=== PATIENT | female | born 1990 | race African-American/Black ===

== ENCOUNTER 2021-11-16 23:29 | Day surgery (SDC) | payer OTHER ==
[2021-11-16] MEDS ORDERED: hydrALAZINE 20 MG/ML VIAL SLOW IVP PRN (23:34)
[2021-11-16] MEDS ORDERED: Acetaminophen 325 MG TAB PO SCH (23:59)
[2021-11-17] MEDS ORDERED: Calcium Carbonate 500 MG ChewTAB PO SCH (00:15)
[2021-11-17 00:30] LABS: Hemoglobin 8.1 g/dL (12.0-15.5); Mean Corpuscular HGB CONC 34.2 g/dL (32.0-36.0); Mean Corpuscular Hemoglobin 31.8 pg (27.0-33.0); Mean Corpuscular Volume 92.9 fl (81.6-98.3); Mean Platelet Volume 10.5 fl (7.4-10.4); Platelet Count 301 10x3/uL (150-450); RBC Distribution Width 12.4 % (11.5-14.5); Red Blood Cell (RBC) Count 2.55 10x6/uL (3.90-5.03); White Blood Cell (WBC) Count 7.7 10x3/uL (3.5-10.5)
[2021-11-17] MEDS ORDERED: Ondansetron PF 4 MG/2 ML Vial IVP SCH (00:45)
[2021-11-17] MEDS ORDERED: Lactated Ringer's 1,000 ML IV SCH (00:45)
[2021-11-17 01:00] LABS: Syphilis Antibody Nonreactive (Nonreactive); Syphilis Antibody Index 0.06 S/CO (<1.00 Non-Reactive)
[2021-11-17] MEDS ORDERED: Famotidine/PF 20 mg/2ml Vial SLOW IVP SCH ×2 (01:00→09:00)
[2021-11-17 02:12] LABS: Bilirubin Neg (Negative); Blood, Urine Negative (Negative); Clarity Clear (Clear); Glucose, Urine (Dipstick) Normal (Negative); Ketone, Urine Negative (Negative); Leukocyte 100 (Negative); Nitrite Negative (Negative); Protein, Urine (Dipstick) 15 mg/dl (Neg-Trace); Urobilinogen Normal mg/dL (Less than 2)
[2021-11-17 02:18] LABS: Bacteria/HPF Rare-Few HPF (None Seen); RBC/HPF None Seen HPF (0-3); Squamous Epithelial 0-3 HPF (0-3); WBC/HPF 0-3 HPF (0-3)
[2021-11-17 12:26] LABS: HBSAB Concentration Less than 8.00 mIU/mL; Hep B Surf AB Non-Reactive (NonReactive)
[2021-11-17 15:37] LABS: Chlamydia by PCR Not Detected (NotDetected); GC by PCR DETECTED (NotDetected)
== END 2021-11-17 04:00 | disposition home or self-care (01) ==
LOC: CSHLD/OP 23:29
PROVIDERS: ATTEND Obstetrics & Gynecology
DX: O99.891 Other specified diseases and conditions complicating pregnancy (principal); R10.13 Epigastric pain; O99.013 Anemia complicating pregnancy, third trimester; O10.913 Unspecified pre-existing hypertension complicating pregnancy, third trimester; O09.33 Supervision of pregnancy with insufficient antenatal care, third trimester; O32.2XX0 Maternal care for transverse and oblique lie, not applicable or unspecified; Z3A.28 28 weeks gestation of pregnancy
CPT/HCPCS: 36415; 76816; 81001; 85027; 86706; 86762; 86780; 86850; 86900; 86901; 87491; 87591; 96360; 96361; 96375; 99284; J2405; S0028

== ENCOUNTER 2022-01-15 11:25 | Day surgery (SDC) | payer OTHER, SELFPAY ==
[2022-01-15 12:22] LABS: Bilirubin Neg (Negative); Blood, Urine Negative (Negative); Clarity Slightly Cloudy (Clear); Glucose, Urine (Dipstick) Normal (Negative); Ketone, Urine Negative (Negative); Leukocyte 100 (Negative); Nitrite Negative (Negative); Protein, Urine (Dipstick) 100 mg/dl (Neg-Trace); Specific Gravity, Urine 1.015 (1.002-1.036)
[2022-01-15 12:24] LABS: Urine Culture Reflex No No
[2022-01-15 12:33] LABS: Amphetamine Not Detected (NotDetected); Barbiturates Screen Not Detected (NotDetected); Benzodiazepine Screen Not Detected (NotDetected); Cocaine Metabolite Screen Detected (NotDetected); Methadone Not Detected (NotDetected); Methamphetamine Not Detected (NotDetected); Opiate Screen Not Detected (NotDetected); Oxycodone Screen Not Detected (NotDetected); Phencyclidine (PCP) Not Detected (NotDetected); THC/Cannabinoid Screen Detected (NotDetected); Tricyclic Screen Not Detected (NotDetected)
[2022-01-15 12:36] LABS: RBC/HPF 0-3 HPF (0-3)
[2022-01-15 12:38] LABS: Bacteria/HPF 1+ HPF (None Seen)
[2022-01-15] MEDS ORDERED: hydrALAZINE 20 MG/ML VIAL SLOW IVP PRN (12:51)
[2022-01-15 13:50] LABS: Hemoglobin 8.5 g/dL (12.0-15.5); Mean Corpuscular HGB CONC 32.7 g/dL (32.0-36.0); Mean Corpuscular Hemoglobin 30.6 pg (27.0-33.0); Mean Corpuscular Volume 93.5 fl (81.6-98.3); Mean Platelet Volume 10.7 fl (7.4-10.4); Platelet Count 295 10x3/uL (150-450); RBC Distribution Width 13.6 % (11.5-14.5); Red Blood Cell (RBC) Count 2.78 10x6/uL (3.90-5.03); White Blood Cell (WBC) Count 7.3 10x3/uL (3.5-10.5)
[2022-01-15 14:48] LABS: Bilirubin Neg (Negative); Blood, Urine Negative (Negative); Clarity Slightly Cloudy (Clear); Glucose, Urine (Dipstick) Normal (Negative); Ketone, Urine Negative (Negative); Leukocyte Negative (Negative); Nitrite Negative (Negative); Protein, Urine (Dipstick) 30 mg/dl (Neg-Trace); Urobilinogen Normal mg/dL (Less than 2)
[2022-01-15 14:54] LABS: RBC/HPF 0-3 HPF (0-3)
[2022-01-15 14:55] LABS: Bacteria/HPF Rare-Few HPF (None Seen)
[2022-01-15] MEDS ORDERED: cefTRIAXone\\ROCEPHIN 500 MG VIAL IM SCH (15:45)
[2022-01-15] MEDS ORDERED: Ondansetron ODT 4 MG TAB PO SCH (16:00)
[2022-01-15] MEDS ORDERED: Azithromycin 250 MG TAB PO SCH (16:30)
== END 2022-01-15 16:30 | disposition home health service (06) ==
LOC: CSHLD/OP 11:25
PROVIDERS: ATTEND Obstetrics & Gynecology
DX: O26.893 Other specified pregnancy related conditions, third trimester (principal); M54.9 Dorsalgia, unspecified; R10.9 Unspecified abdominal pain; O09.33 Supervision of pregnancy with insufficient antenatal care, third trimester; Z3A.35 35 weeks gestation of pregnancy
CPT/HCPCS: 76815; 80306; 81001; 85027; 96372; 99284; J0696; Q0162

== ENCOUNTER 2022-01-25 00:13 | Day surgery (SDC) | payer OTHER ==
[2022-01-25] MEDS ORDERED: hydrALAZINE 20 MG/ML VIAL SLOW IVP PRN (00:50)
[2022-01-25] MEDS ORDERED: Acetaminophen 500 MG TAB PO SCH (01:15)
== END 2022-01-25 02:59 | disposition home or self-care (01) ==
LOC: CSHLD/OP 00:13
PROVIDERS: ATTEND Family Medicine
DX: O26.893 Other specified pregnancy related conditions, third trimester (principal); R10.30 Lower abdominal pain, unspecified; O10.913 Unspecified pre-existing hypertension complicating pregnancy, third trimester; Z3A.36 36 weeks gestation of pregnancy
CPT/HCPCS: 99283

== ENCOUNTER 2022-02-11 22:26 | Inpatient (IN) | payer OTHER, SELFPAY ==
[~2022-02-11 22:26] MED LIST: Bupivacaine 0.25% HCL 30 ML VIAL ONE
[2022-02-11 22:34] VITALS: BMI 23.7
[2022-02-11] MEDS ORDERED: hydrALAZINE 20 MG/ML VIAL SLOW IVP PRN (23:12)
[2022-02-11] MEDS ORDERED: Acetaminophen 500 MG TAB PO SCH (23:18)
[2022-02-11] MEDS ORDERED: Misoprostol 200 MCG TAB PR PRN (23:35)
[2022-02-11] MEDS ORDERED: Diphenoxylate HCl/Atropine Tablet PO PRN ×2 (23:35)
[2022-02-11] MEDS ORDERED: Lidocaine 1% (PF) 30 ML VIAL SC PRN (23:35)
[2022-02-11] MEDS ORDERED: Acetaminophen 500 MG TAB PO PRN (23:35)
[2022-02-11] MEDS ORDERED: Carboprost 250 MCG/ML AMP IM PRN (23:35)
[2022-02-11] MEDS ORDERED: Ibuprofen 800 MG TAB PO PRN (23:35)
[2022-02-11] MEDS ORDERED: HYDROcodone/Acetaminophen 5/325 mg Tablet PO PRN ×2 (23:35)
[2022-02-11] MEDS ORDERED: Promethazine HCl 25 MG/ML VIAL IM PRN (23:35)
[2022-02-11] MEDS ORDERED: Ondansetron PF 4 MG/2 ML Vial IVP PRN (23:35)
[2022-02-11] MEDS ORDERED: NS w/ Oxytocin 30 units 500 ML IV SCH ×2 (23:45)
[2022-02-11 23:46] LABS: Amphetamine Not Detected (NotDetected); Barbiturates Screen Not Detected (NotDetected); Benzodiazepine Screen Not Detected (NotDetected); Cocaine Metabolite Screen Detected (NotDetected); Methadone Not Detected (NotDetected); Methamphetamine Not Detected (NotDetected); Opiate Screen Not Detected (NotDetected); Oxycodone Screen Not Detected (NotDetected); Phencyclidine (PCP) Not Detected (NotDetected); THC/Cannabinoid Screen Detected (NotDetected); Tricyclic Screen Not Detected (NotDetected)
[2022-02-11 23:51] LABS: #Eosinphils 0.1 10x3/uL (0.0-0.5); #Monocytes 0.7 10x3/uL (0.0-1.1); #Neutrophils 5.4 10x3/uL (1.5-8.4); %Basophils 0.3 % (0.0-2.0); %Lymphocytes 21.1 % (18.0-47.0); %Monocytes 8.2 % (0.0-10.0); Hemoglobin 8.2 g/dL (12.0-15.5); Mean Corpuscular HGB CONC 33.2 g/dL (32.0-36.0); Mean Corpuscular Volume 87.3 fl (81.6-98.3); Mean Platelet Volume 11.7 fl (7.4-10.4); Platelet Count 307 10x3/uL (150-450); Red Blood Cell (RBC) Count 2.83 10x6/uL (3.90-5.03); White Blood Cell (WBC) Count 7.9 10x3/uL (3.5-10.5)
[2022-02-12 00:01] LABS: Creatinine, Urine 127.25 mg/dL (47-110)
[2022-02-12 00:32] LABS: ALT (SGPT) 12 U/L (8-55); AST (SGOT) 32 U/L (5-34); Albumin 3.3 g/dL (3.5-5.0); Alkaline Phosphatase 152 U/L (40-110); Anion Gap 13 mmol/L (10-20); BUN (Urea Nitrogen) 8 mg/dL (7.0-18.7); Bilirubin, Total 0.2 mg/dL (0.2-1.2); Calc. Creatinine Clearance 101 mL/min (70-130); Calcium 9.4 mg/dL (7.8-10.44); Carbon Dioxide 24 mmol/L (22-29); Chloride 105 mmol/L (98-107); Estimated GFR 104; Globulin 3.6 g/dL (2.4-3.5); Glucose 85 mg/dL (70-105); Potassium 3.6 mmol/L (3.5-5.1); Protein, Total 6.9 g/dL (6.0-8.3); Sodium 138 mmol/L (136-145)
[2022-02-12] MEDS ORDERED: Famotidine/PF 20 mg/2ml Vial ONE (00:39)
[2022-02-12] MEDS ORDERED: Famotidine/PF 20 mg/2ml Vial SLOW IVP SCH (00:45)
[2022-02-12 01:13] LABS: Syphilis Antibody Nonreactive (Nonreactive); Syphilis Antibody Index 0.08 S/CO (<1.00 Non-Reactive)
[2022-02-12 01:15] LABS: HBSAg Index 0.37 S/CO (0-0.99); HIV (1/2) Antibody/Antigen Non-Reactive (NonReactive); HIV 1/2 INDEX 0.18 S/CO (<1.00); Hep B Surf Ag Non-Reactive S/CO (NonReactive)
[2022-02-12 02:11] LABS: SARS-CoV-2 NAA Rapid Test Not Detected (NotDetected)
[2022-02-12] MEDS: hydrALAZINE 20 MG/ML VIAL SLOW IVP PRN ×2 (06:49→10:09)
[2022-02-12] MEDS ORDERED: Magnesium Sulfate 20 gm/500 ml 20 GM/500 ML BAG ONE ×2 (06:52→15:52)
[2022-02-12] MEDS ORDERED: Fentanyl 2 mcg/Bup 0.1% Cadd 100 ML ONE (09:06)
[2022-02-12] MEDS ORDERED: ePHEDrine Sulfate 50 MG/10 ML VIAL SLOW IVP PRN (09:46)
[2022-02-12] MEDS ORDERED: Lactated Ringer's 500 ML IV PRN (09:46)
[2022-02-12] MEDS ORDERED: diphenhydrAMINE 50 MG/ML VIAL IVP PRN (09:46)
[2022-02-12] MEDS ORDERED: Naloxone HCl 0.4 mg/ml Vial IVP PRN ×2 (09:46)
[2022-02-12] MEDS ORDERED: Acetaminophen 325 MG TAB PO PRN (09:46)
[2022-02-12] MEDS ORDERED: Ondansetron PF 4 MG/2 ML Vial IVP PRN (09:46)
[2022-02-12] MEDS ORDERED: Promethazine HCl 25 MG/ML VIAL IM PRN (09:46)
[2022-02-12] MEDS ORDERED: Moisturizing Cream (Eucerin) 113 GM JAR TOP PRN (09:46)
[2022-02-12] MEDS ORDERED: Fentanyl 2 mcg/Bupivacaine 0.1% Cassette 100 ML EPIDURAL SCH (10:00)
[2022-02-12] MEDS ORDERED: Communication Order-Pharmacy FS SCH (10:00)
[2022-02-12] MEDS ORDERED: Labetalol HCl 100 MG/20 ML VIAL SLOW IVP PRN (16:06)
[2022-02-12] MEDS ORDERED: Lorazepam 2 MG/ML VIAL SLOW IVP PRN (16:06)
[2022-02-12] MEDS ORDERED: hydrALAZINE 20 MG/ML VIAL SLOW IVP PRN ×3 (16:06→17:56)
[2022-02-12] MEDS ORDERED: Calcium Gluc 4.6 MEQ/10 ML (100 MG/ML) SLOW IVP PRN (16:06)
[2022-02-12] MEDS ORDERED: Misoprostol 200 MCG TAB ONE (16:56)
[2022-02-12] MEDS ORDERED: Tranexamic Acid 1,000 MG/10 ML VIAL ONE (16:56)
[2022-02-12] MEDS ORDERED: Lidocaine 1% (PF) 30 ML VIAL ONE (16:56)
[2022-02-12] MEDS ORDERED: Loperamide HCl 2 MG CAP PO PRN (17:52)
[2022-02-12] MEDS ORDERED: Boostrix 0.5 ML (Tdap) VIAL IM ONE (17:56)
[2022-02-12] MEDS ORDERED: Lanolin Ointment 7 GM TUBE TOP PRN (17:56)
[2022-02-12] MEDS ORDERED: Benzocaine-Menthol 82.5 ML CAN TOP PRN (17:56)
[2022-02-12] MEDS ORDERED: Bisacodyl 10 MG SUPP PR PRN (17:56)
[2022-02-12] MEDS ORDERED: Milk Of Magnesia 30 ML UDCUP PO PRN (17:56)
[2022-02-12 19:45] LABS: D-Dimer Test 3.8 mg/L FEU (0.19-0.50); INR-International Normal Ratio 0.9; PTT 24.3 sec (22.0-33.0); Prothrombin Time 9.6 sec (9.5-12.1)
[2022-02-12] MEDS ORDERED: HYDROcodone/Acetaminophen 5/325 mg Tablet PO PRN (21:13)
[2022-02-12] MEDS: HYDROcodone/Acetaminophen 5/325 mg Tablet PO PRN (21:42)
[2022-02-12 22:57] LABS: Hemoglobin 7.6 g/dL (12.0-15.5); Mean Corpuscular HGB CONC 33.8 g/dL (32.0-36.0); Mean Corpuscular Hemoglobin 29.2 pg (27.0-33.0); Mean Corpuscular Volume 86.5 fl (81.6-98.3); Mean Platelet Volume 11.2 fl (7.4-10.4); Platelet Count 285 10x3/uL (150-450); RBC Distribution Width 13.9 % (11.5-14.5); White Blood Cell (WBC) Count 15.9 10x3/uL (3.5-10.5)
[2022-02-13] MEDS: Ibuprofen 800 MG TAB PO SCH ×4 (01:44→21:30)
[2022-02-13] MEDS: Magnesium Sulfate 20 gm/500 ml 20 GM/500 ML BAG IVPB SCH ×2 (03:06→12:00)
[2022-02-13 05:50] LABS: Hemoglobin 6.8 g/dL (12.0-15.5); Mean Corpuscular HGB CONC 33.2 g/dL (32.0-36.0); Mean Corpuscular Hemoglobin 29.1 pg (27.0-33.0); Mean Corpuscular Volume 87.6 fl (81.6-98.3); Mean Platelet Volume 11.9 fl (7.4-10.4); Platelet Count 273 10x3/uL (150-450); RBC Distribution Width 14.1 % (11.5-14.5); Red Blood Cell (RBC) Count 2.34 10x6/uL (3.90-5.03); White Blood Cell (WBC) Count 13.9 10x3/uL (3.5-10.5)
[2022-02-13] MEDS ORDERED: Oxytocin 10 UNITS/ML VIAL ONE (08:42)
[2022-02-13] MEDS ORDERED: CEFAZOLIN 2 GM VIAL ONE (08:48)
[2022-02-13] MEDS: Ferrous Sulfate 325 MG TAB PO SCH ×2 (08:50→17:09)
[2022-02-13] MEDS: HYDROcodone/Acetaminophen 5/325 mg Tablet PO PRN ×2 (08:50→15:07)
[2022-02-13] MEDS: Docusate 100 MG CAP PO SCH ×3 (08:50→21:31)
[2022-02-13] MEDS: Prenatal Vitamin 1 TAB PO SCH (08:50)
[2022-02-13] MEDS: CEFAZOLIN 2 GM in Sodium Chloride 0.9% 100 ML IVPB SCH ×2 (13:40→21:32)
[2022-02-13] MEDS: Lactated Ringer's 1,000 ML IV SCH ×2 (15:22→17:07)
[2022-02-14] MEDS: Lactated Ringer's 1,000 ML IV SCH ×4 (02:46→08:07)
[2022-02-14] MEDS ORDERED: Sodium Chloride 0.9% 200 ML ONE (05:34)
[2022-02-14] MEDS: CEFAZOLIN 2 GM in Sodium Chloride 0.9% 100 ML IVPB SCH (05:47)
[2022-02-14] MEDS: Ibuprofen 800 MG TAB PO SCH ×2 (05:48→13:44)
[2022-02-14] MEDS: Prenatal Vitamin 1 TAB PO SCH (08:42)
[2022-02-14] MEDS: Ferrous Sulfate 325 MG TAB PO SCH ×3 (08:42→18:44)
[2022-02-14] MEDS: Docusate 100 MG CAP PO SCH (08:42)
[2022-02-14 23:00] VITALS: BP 146/81; TEMP 98.5
[2022-02-15] MEDS: Docusate 100 MG CAP PO SCH (02:42)
[2022-02-15] MEDS: Ibuprofen 800 MG TAB PO SCH (02:42)
== END 2022-02-14 23:20 | disposition home or self-care (01) | DRG 768 ==
LOC: CSHLD/OP 22:26 → CSHLD 23:48 → CSHPP 02-13 14:55
PROVIDERS: ADMIT Obstetrics & Gynecology; ATTEND Obstetrics & Gynecology
PROC: 10E0XZZ Delivery of Products of Conception, External Approach (ICD-10-PCS; principal; 2022-02-12)
PROC: 0W3R7ZZ Control Bleeding in Genitourinary Tract, Via Natural or Artificial Opening (ICD-10-PCS; 2022-02-12)
DX: O10.92 Unspecified pre-existing hypertension complicating childbirth (principal); Z37.0 Single live birth; O99.324 Drug use complicating childbirth; O72.1 Other immediate postpartum hemorrhage; D62 Acute posthemorrhagic anemia; Z3A.39 39 weeks gestation of pregnancy; Z20.822 Contact with and (suspected) exposure to COVID-19; F32.A Depression, unspecified; O99.344 Other mental disorders complicating childbirth; F12.90 Cannabis use, unspecified, uncomplicated; F14.90 Cocaine use, unspecified, uncomplicated; O11.4 Pre-existing hypertension with pre-eclampsia, complicating childbirth; O90.81 Anemia of the puerperium; D50.9 Iron deficiency anemia, unspecified
CPT/HCPCS: 36415; 51702; 80053; 80306; 82570; 84156; 85025; 85027; 85049; 85300; 85362; 85379; 85384; 85610; 85730; 86780; 86850; 86900; 86901; 87340; 87389; 99285; J0360; J0595; J0690; J2405; J2590; J3475; J3490; S0020; S0028; U0002

== ENCOUNTER 2024-04-01 18:27 | Emergency (ER) | payer SELFPAY ==
[2024-04-01 20:12] LABS: Bilirubin Neg (Negative); Blood, Urine Negative (Negative); Clarity Slightly Cloudy (Clear); Glucose, Urine (Dipstick) Normal (Negative); Ketone, Urine Negative (Negative); Leukocyte 25 (Negative); Nitrite Negative (Negative); Protein, Urine (Dipstick) 15 mg/dl (Neg-Trace); Specific Gravity, Urine 1.005 (1.005-1.030); Urobilinogen Normal mg/dL (Less than 2)
[2024-04-01 20:33] LABS: #Basophils 0.02 10x3/uL (0.0-0.2); #Eosinophils 0.07 10x3/uL (0.0-0.5); #Monocytes 0.82 10x3/uL (0.0-1.1); #Neutrophils 7.15 10x3/uL (1.5-8.4); %Basophils 0.2 % (0.0-2.0); %Eosinophils 0.7 % (0.0-6.0); %Lymphocytes 21.5 % (18.0-47.0); %Neutrophils 69.3 % (40.0-75.0); ALT (SGPT) 14 U/L (8-55); AST (SGOT) 31 U/L (5-34); Albumin 3.2 g/dL (3.5-5.0); Alkaline Phosphatase 60 U/L (40-110); Anion Gap 14 mmol/L (10-20); BUN (Urea Nitrogen) 10 mg/dL (7.0-18.7); Bilirubin, Total 0.3 mg/dL (0.2-1.2); Calc. Creatinine Clearance 0 mL/min (70-130); Calcium 9.3 mg/dL (7.8-10.44); Carbon Dioxide 22 mmol/L (22-29); Chloride 105 mmol/L (98-107); Estimated GFR 122; Globulin 3.7 g/dL (2.4-3.5); Glucose 78 mg/dL (70-105); Hematocrit 29.4 % (34.9-44.5); Hemoglobin 9.8 g/dL (12.0-15.5); Lipase 24 U/L (8-78); Magnesium 1.5 mg/dL (1.6-2.6); Mean Corpuscular HGB CONC 33.3 g/dL (32.0-36.0); Mean Corpuscular Hemoglobin 31.4 pg (27.0-33.0); Mean Corpuscular Volume 94.2 fL (81.6-98.3); Platelet Count 277 10x3/uL (150-450); Potassium 3.5 mmol/L (3.5-5.1); Protein, Total 6.9 g/dL (6.0-8.3); RBC Distribution Width 13.2 % (11.5-14.5); Red Blood Cell (RBC) Count 3.12 10x6/uL (3.90-5.03); Sodium 137 mmol/L (136-145); White Blood Cell (WBC) Count 10.3 10x3/uL (3.5-10.5)
[2024-04-01 20:38] LABS: CAUTI Indications for Culture Pelvic or flank pain; RBC/HPF None Seen HPF (0-3)
[2024-04-01 20:39] LABS: Bacteria/HPF None Seen HPF (None Seen); Mucous/LPF 2+ LPF (<2+)
[2024-04-01 20:40] LABS: Urine Culture Reflex No No
[2024-04-01] MEDS ORDERED: Magnesium 2 GM/50 ML BAG (IN WATER) ONE (21:30)
== END 2024-04-01 22:22 | disposition home or self-care (01) ==
LOC: CSHERS 18:27
DX: O21.9 Vomiting of pregnancy, unspecified (principal); O13.1 Gestational [pregnancy-induced] hypertension without significant proteinuria, first trimester; O99.331 Smoking (tobacco) complicating pregnancy, first trimester; F17.290 Nicotine dependence, other tobacco product, uncomplicated; Z3A.20 20 weeks gestation of pregnancy
CPT/HCPCS: 80053; 81001; 83690; 83735; 84702; 85025; 96360; J3475

== ENCOUNTER 2024-07-18 12:29 | Day surgery (SDC) | payer OTHER, SELFPAY ==
[2024-07-18 12:54] VITALS: BMI 31.6
[2024-07-18 14:46] LABS: Bilirubin Neg (Negative); Blood, Urine Negative (Negative); Clarity Clear (Clear); Glucose, Urine (Dipstick) Normal (Negative); Ketone, Urine Negative (Negative); Leukocyte Negative (Negative); Nitrite Negative (Negative); Protein, Urine (Dipstick) 15 mg/dl (Neg-Trace); Specific Gravity, Urine 1.005 (1.005-1.030); Urobilinogen Normal mg/dL (Less than 2)
[2024-07-18 14:53] LABS: Bacteria/HPF None Seen HPF (None Seen); CAUTI Indications for Culture Pelvic or flank pain; RBC/HPF None Seen HPF (0-3); Squamous Epithelial 0-3 HPF (0-3); Urine Culture Reflex No No; WBC/HPF None Seen HPF (0-3)
== END 2024-07-18 15:45 | disposition home or self-care (01) ==
LOC: CSHLD/OP 12:29
PROVIDERS: ATTEND Family Medicine
DX: O36.8130 Decreased fetal movements, third trimester, not applicable or unspecified (principal); O09.43 Supervision of pregnancy with grand multiparity, third trimester; O99.891 Other specified diseases and conditions complicating pregnancy; M54.9 Dorsalgia, unspecified; Z79.82 Long term (current) use of aspirin; Z3A.34 34 weeks gestation of pregnancy; Z79.899 Other long term (current) drug therapy
CPT/HCPCS: 76819; 81001